=== PATIENT | male | born 1960 | race Caucasian/White ===

== ENCOUNTER 2016-10-25 20:16 | Emergency (ER) | payer BC ==
[2016-10-25 20:27] VITALS: BP 137/70
[2016-10-25] MEDS ORDERED: Amoxicillin/Clavulanate TAB* 875 MG PO ONE (20:46)
--- NOTE | 2016-10-25 20:50 | UC ---
Throat Pain/Nasal Roe HPI - HPI Summary HPI Summary: chest congestion / cough x 10 days + fever, chills, nasal congestion, pnd, sinus pressure - History of Current Complaint Chief Complaint: UCGeneralIllness Stated Complaint: FEVER/SINUS Time Seen by Provider: 10/25/16 20:30 Hx Obtained From: Patient Onset/Duration: Gradual Onset, Lasting Days - 10, Still Present Severity: Moderate Cough: Nonproductive Associated Signs & Symptoms: Positive: Sinus Discomfort, Nasal Discharge, Fever. Negative: Rash - Allergies/Home Medications Allergies/Adverse Reactions: Allergies Allergy/AdvReac Type Severity Reaction Status Date / Time Penicillins Allergy Unknown Verified 10/25/16 20:27 Reaction Details Home Medications: Home Medications Methotrexate TAB* 6 tab PO WEEKLY 10/25/16 [History Confirmed 10/25/16] PMH/Surg Hx/FS Hx/Imm Hx Endocrine History: Diabetes Cardiovascular History: Hypertension - Surgical History Surgical History: Yes Surgery Procedure, Year, and Place: ~2002- excision cysts- [facility] DAVID- [facility] – [place]. [place]- RIGHT KNEE SCOPE- [facility]. RT HIP REPLACEMENT 2013. LUNG Biopsy october 2013==rumatoid nodules - Family History Known Family History: Positive: Hypertension, Diabetes, Other - RA - Social History Alcohol Use: Occasionally Substance Use Type: None Substance Use Comment - Amount & Last Used: 3-4 CUPS DAILY Smoking Status (MU): Former Smoker Amount Used/How Often: ALMOST 2 PPD X 20 YEARS When Did the Patient Quit Smoking/Using Tobacco: 17 years ago - Immunization History Most Recent Influenza Vaccination: 01/20 Most Recent Tetanus Shot: 2007 Most Recent Pneumonia Vaccination: EXEMPT Review of Systems Constitutional: Fever, Chills, Fatigue Skin: Negative Eyes: Negative ENT: Sore Throat, Nasal Discharge Respiratory: Cough Cardiovascular: Negative Gastrointestinal: Negative Genitourinary: Negative All Other Systems Reviewed And Are Negative: Yes Physical Exam Triage Information Reviewed: Yes Appearance: Well-Appearing, No Pain Distress, Well-Nourished Vital Signs: Initial Vital Signs Temp 99.6 F 10/25/16 20:21 Pulse 82 10/25/16 20:21 Resp 17 10/25/16 20:21 BP 137/70 10/25/16 20:21 Pulse Ox 98 10/25/16 20:21 Vital Signs Reviewed: Yes Eyes: Positive: Conjunctiva Clear ENT: Positive: Normal ENT inspection, Hearing grossly normal, Pharynx normal Neck: Positive: Supple, Nontender, No Lymphadenopathy Respiratory: Positive: Chest non-tender, Lungs clear, Normal breath sounds Cardiovascular: Positive: RRR, No Murmur, Pulses Normal Abdominal Exam: Normal Skin Exam: Normal Throat Pain/Nasal Course/Dx - Differential Dx/Diagnosis Provider Diagnoses: acute bronchitis Discharge - Discharge Plan Condition: Stable Disposition: HOME Prescriptions: Amoxicillin/Clavulanate TAB* [Augmentin TAB 875*] 875 mg PO BID #20 tab Patient Education Materials: Acute Bronchitis (ED) Referrals: Toñito Vigil MD [Primary Care Provider] - 7 Days
== END 2016-10-25 20:52 | disposition home or self-care (01) ==
LOC: UCCORT 20:16
DX: J20.9 Acute bronchitis, unspecified (principal); E11.9 Type 2 diabetes mellitus without complications; I10 Essential (primary) hypertension; Z96.641 Presence of right artificial hip joint; Z87.891 Personal history of nicotine dependence
CPT/HCPCS: 99212; A9270-GY; G0463

== ENCOUNTER 2016-12-08 10:40 | Emergency (ER) | payer BC ==
[2016-12-08 10:55] VITALS: BP 137/65
--- NOTE | 2016-12-08 11:12 | UC ---
Respiratory Complaint HPI - HPI Summary HPI Summary: Cough going on 1 week. Worse in the morning. - History of Current Complaint Chief Complaint: UCRespiratory Stated Complaint: CONGESTION/COUGH Time Seen by Provider: 12/08/16 10:44 Hx Obtained From: Patient Onset/Duration: Sudden Onset, Lasting Weeks - 1, Still Present Severity Initially: Mild Severity Currently: Mild Character: Cough: Productive - just first thing in the morning. Aggravating Factors: Recumbent Position Alleviating Factors: Nothing Associated Signs And Symptoms: Positive: Nasal Congestion, Hoarseness, Sinus Discomfort. Negative: Fever, Chills, Wheezing - Risk Factors Pulmonary Embolism Risk Factors: Negative Cardiac Risk Factors: Negative Pseudomonas Risk Factors: Negative Tuberculosis Risk Factors: Negative - Allergies/Home Medications Allergies/Adverse Reactions: Allergies Allergy/AdvReac Type Severity Reaction Status Date / Time Penicillins Allergy Unknown Verified 12/08/16 10:44 Reaction Details PMH/Surg Hx/FS Hx/Imm Hx Endocrine History: Diabetes Cardiovascular History: Hypertension - Surgical History Surgical History: Yes Surgery Procedure, Year, and Place: ~2002- excision cysts- [place] DAVID- [facility] [place]. [place]- RIGHT KNEE SCOPE- [facility]. RT HIP REPLACEMENT 2013. LUNG Biopsy october 2013==rumatoid nodules - Family History Known Family History: Positive: Hypertension, Diabetes, Other - RA - Social History Occupation: Employed Full-time Lives: With Family Alcohol Use: Occasionally Substance Use Type: None Substance Use Comment - Amount & Last Used: 3-4 CUPS DAILY Smoking Status (MU): Former Smoker Amount Used/How Often: ALMOST 2 PPD X 20 YEARS Have You Smoked in the Last Year: No When Did the Patient Quit Smoking/Using Tobacco: 17 years ago - Immunization History Most Recent Influenza Vaccination: 2016 Most Recent Tetanus Shot: 2008 Most Recent Pneumonia Vaccination: EXEMPT Review of Systems ENT: Nasal Discharge Respiratory: Cough All Other Systems Reviewed And Are Negative: Yes Physical Exam Triage Information Reviewed: Yes Appearance: Well-Appearing, No Pain Distress, Well-Nourished Vital Signs: Initial Vital Signs Temp 97.2 F 12/08/16 10:48 Pulse 66 12/08/16 10:48 Resp 16 12/08/16 10:48 BP 137/65 12/08/16 10:48 Pulse Ox 100 12/08/16 10:48 Vital Signs Reviewed: Yes Eyes: Positive: Conjunctiva Clear ENT: Positive: Pharynx normal, Nasal congestion, TMs normal Neck exam: Normal Respiratory: Positive: Wheezing - Mild expiratory wheezes Cardiovascular Exam: Normal Musculoskeletal Exam: Normal Neurological Exam: Normal Psychological Exam: Normal Skin Exam: Normal UC Diagnostic Evaluation - Laboratory O2 Sat by Pulse Oximetry: 100 Respiratory Course/Dx - Differential Dx/Diagnosis Differential Diagnosis/HQI/PQRI: Asthma, Lower Resp Infection, Sinusitis Provider Diagnoses: Acute URI. Acute bronchospasm Discharge - Discharge Plan Condition: Stable Disposition: HOME Prescriptions: predniSONE TAB* [Deltasone TAB*] 20 mg PO DAILY #18 tab Patient Education Materials: Upper Respiratory Infection (ED), Wheezing (ED), Prednisone (By mouth) Additional Instructions: Please rest and stay well hydrated.
== END 2016-12-08 11:30 | disposition home or self-care (01) ==
LOC: UCCORT 10:40
DX: J06.9 Acute upper respiratory infection, unspecified (principal); J98.01 Acute bronchospasm; Z87.891 Personal history of nicotine dependence
CPT/HCPCS: 99212; G0463

== ENCOUNTER 2017-06-13 06:27 | Day surgery (SDC) | payer BC ==
[~2017-06-13 06:27] MED LIST: Buffered Lidocaine 0.9% SYRIN* 5 ML/SYR SYRINGE INTRADERM ONE
[2017-06-13] MEDS ORDERED: Clindamycin 900 MG IVPREMIX(* 900 MG/50 ML SDV IV ONE (06:33)
[2017-06-13] MEDS ORDERED: Bupivacaine 0.25% SDV* 30 ML ONE (07:01)
[2017-06-13] MEDS ORDERED: fentaNYL* 50 MCG/ML 2 ML VIAL (100 MCG VIAL) ONE (07:17)
[2017-06-13] MEDS ORDERED: Midazolam* 1 MG/ML 2 ML VIAL (2 MG) ONE (07:18)
[2017-06-13] MEDS ORDERED: Famotidine IV* 10 MG/ML 2 ML (20 mg) ONE (07:29)
[2017-06-13] MEDS ORDERED: Lidocaine 2% PF * 5 ML VIAL ONE (07:36)
[2017-06-13] MEDS ORDERED: Propofol* 10 MG/ML 20 ML BTL IV PUSH ONE (07:36)
[2017-06-13] MEDS ORDERED: Ketorolac INJ* 30 MG/ML 1 ML VIAL ONE (07:36)
[2017-06-13] MEDS ORDERED: Naloxone* 0.4 MG/ML 1 ML VIAL IV PRN (07:50)
[2017-06-13] MEDS ORDERED: Ondansetron INJ* 2 MG/ML VIAL IV PRN (07:50)
[2017-06-13] MEDS ORDERED: Acetaminophen TAB* 325 MG PO PRN (07:50)
[2017-06-13 08:30] VITALS: BP 132/80
== END 2017-06-13 08:49 | disposition home or self-care (01) ==
LOC: OREAST 06:27
PROVIDERS: ATTEND Plastic Surgery
DX: G56.02 Carpal tunnel syndrome, left upper limb (principal); E11.9 Type 2 diabetes mellitus without complications; Z79.4 Long term (current) use of insulin; I10 Essential (primary) hypertension; M06.9 Rheumatoid arthritis, unspecified; Z87.442 Personal history of urinary calculi
CPT/HCPCS: J1885; J2250; J2704; J3010

== ENCOUNTER → 2018-07-08 05:47 | Day surgery (SDC) | payer BC ==
[~2018-07-08 05:47] MED LIST changes: -Buffered Lidocaine 0.9% SYRIN* 5 ML/SYR SYRINGE INTRADERM ONE; +Buffered Lidocaine 1% SYRIN* 1 ML/SYRINGE INTRADERM ONE; +Bupivacaine 0.25% SDV PF* 10 ML VIAL INJ ONE; +Dexamethasone IV* 4 MG/ML 1 ML (4 MG) IV SLOW PU ONE; +Dexamethasone IV* 4 MG/ML 1 ML (4 MG) ONE; +Famotidine IV* 10 MG/ML 2 ML (20 mg) IV ONE; +Famotidine IV* 10 MG/ML 2 ML (20 mg) ONE; +Ketorolac INJ* 30 MG/ML 1 ML VIAL ONE; +Lactated Ringers 1000 ML Bag* 1,000 ML IV SCH; +Midazolam* 1 MG/ML 5 ML VIAL (5 MG) ONE; +Naloxone* 0.4 MG/ML 1 ML VIAL IV PRN; +Ondansetron INJ* 2 MG/ML VIAL ONE; +Propofol* 10 MG/ML 20 ML BTL ONE; +fentaNYL* 50 MCG/ML 2 ML VIAL (100 MCG VIAL) ONE
[2018-07-08 09:46] VITALS: BP 114/69
== END | disposition home or self-care (01) ==
LOC: OR 05:47
PROVIDERS: ATTEND Plastic Surgery
DX: G56.01 Carpal tunnel syndrome, right upper limb (principal); E11.9 Type 2 diabetes mellitus without complications; Z79.4 Long term (current) use of insulin; I10 Essential (primary) hypertension; M06.9 Rheumatoid arthritis, unspecified; G47.33 Obstructive sleep apnea (adult) (pediatric); Z87.442 Personal history of urinary calculi
CPT/HCPCS: J1100; J1885; J2250; J2405; J2704; J3010; J3490